=== PATIENT | female | born 2000 | race Caucasian/White ===

== ENCOUNTER 2022-03-12 13:18 | Emergency (ER) | payer OTHER ==
[~2022-03-12] VITALS: Ht 170.2 cm; Wt 84.0 kg
[2022-03-12] MEDS ORDERED: PROAIR DIGIHAL90 MCG (13:41)
[2022-03-12] MEDS ORDERED: PREDNISONE 20 MG TAB PO ONE (14:15)
[2022-03-12] MEDS ORDERED: ALBUTEROL/IPRATROPIUM 3 ML NEB NEB ONE (14:15)
[2022-03-12] MEDS ORDERED: ALBUTEROL/IPRATROPIUM 3 ML NEB ONE (14:33)
[2022-03-12] MEDS ORDERED: PREDNISONE 20 MG TAB ONE (14:33)
[2022-03-12] MEDS ORDERED: ALBUTEROL2.5 MG/3 M INH (15:13)
[2022-03-12] MEDS ORDERED: PREDNISONE20 MG PO (15:16)
== END 2022-03-12 15:28 | disposition home or self-care (01) ==
LOC: FSED 13:43
DX: R07.89 Other chest pain (principal); J11.1 Influenza due to unidentified influenza virus with other respiratory manifestations; J45.901 Unspecified asthma with (acute) exacerbation; F17.290 Nicotine dependence, other tobacco product, uncomplicated
CPT/HCPCS: 71046; 81003; 81025; 99283; J7512

== ENCOUNTER 2024-09-02 12:42 | Emergency (ER) | payer OTHER ==
[~2024-09-02] VITALS: Ht 170.2 cm; Wt 96.7 kg
[~2024-09-02 12:42] MED LIST: ALBUTEROL2.5 MG/3 M INH; PREDNISONE20 MG PO; PROAIR DIGIHAL90 MCG
[2024-09-02 15:32] VITALS: PULSE 85; RESP 18; TEMP 97.7; O2SAT 98
== END 2024-09-02 15:35 | disposition home or self-care (01) ==
LOC: FSED 12:51
DX: O26.892 Other specified pregnancy related conditions, second trimester (principal); R10.2 Pelvic and perineal pain
CPT/HCPCS: 76805; 81003; 99284

== ENCOUNTER 2025-02-11 01:57 | Emergency (ER) | payer BC, OTHER ==
[~2025-02-11] VITALS: Ht 170.2 cm; Wt 101.6 kg
[2025-02-11] MEDS: CEFTRIAXONE 1 GM VIAL IM ONE (03:14)
[2025-02-11] MEDS ORDERED: IBUPROFEN600 MG PO (03:46)
[2025-02-11] MEDS ORDERED: CEFDINIR300 MG PO (03:46)
[2025-02-11 03:48] VITALS: BP 136/76; PULSE 89; RESP 16; TEMP 98.6
[2025-02-11 03:50] VITALS: PULSE 89; RESP 16; TEMP 98.6; O2SAT 98
== END 2025-02-11 03:54 | disposition home or self-care (01) ==
LOC: FSED 02:05
DX: R10.9 Unspecified abdominal pain (principal); N20.0 Calculus of kidney; N39.0 Urinary tract infection, site not specified; J45.909 Unspecified asthma, uncomplicated
CPT/HCPCS: 74176; 80048; 80076; 81003; 85025; 96372; 99284; J0696